=== PATIENT | male | born 1995 | race Caucasian/White ===

== ENCOUNTER 2020-09-24 09:53 | Emergency (ER) | payer SELFPAY ==
[2020-09-24 10:10] VITALS: BP 129/73; PULSE 87; RESP 19; TEMP 36.9; O2SAT 99; BMI 36.9
--- NOTE | 2020-09-24 10:16 | HMH.EDUTC ---
[facility] [place] Clinical Impression: Encounter for laboratory testing for COVID-19 virus Sinusitis Qualifiers: Sinusitis location: unspecified location Chronicity: unspecified Qualified Code(s): J32.9 - Chronic sinusitis, unspecified Disposition: Home, Self-Care Condition on Discharge: Good Instructions: Sinusitis, Sinus Headache, DI for Sinusitis, Amoxicillin and Clavulanic Acid Additional Instructions: *Monitor Temp, Over the counter Motrin or Tylenol as directed/as needed Tylenol every 4 hours and Motrin every 6 hours (as long as your family doctor has told you that you can take it) for fever or pain. and straight to ER if unable to lower temp less than 101.0 after medication given *Warm salt water gargles may help to soothe the throat *Throat Lozenges *Warm fluids like tea with honey may help to soothe the throat *Sleep elevated *Humidifier/Vaporizer Make sure that you are drinking plenty of fluids Follow up IMMEDIATELY for new or worsening symptoms or no Noticeable improvement over the next 48-72 hours. 911 for difficulty breathing or swallowing You were tested for today for COVID19 your test result should be back in the next 24-48 hours, you may call to the [facility] to see if your test results are back in the next 48 hours [phone] [facility] hours are 9am-9pm You was given a handout with instructions for Self Quarantine and Self isolation for while you wait on test results and what to do if they are positive If you are positive the Health Dept will be contacting you also Prescriptions: Amoxicillin/Potassium Clav [Augmentin 875-125 Tablet] 1 tab PO Q12H 10 Days #20 tab Transmission Status: Pending to [facility] methylPREDNISolone [Medrol 4mg tab] 4 mg PO DIRECTED #21 tab Transmission Status: Pending to [facility] Referrals: Nadir Mckeon MD [Primary Care Provider] - As needed Forms: Work/School Release Time of Disposition: 10:24 Medical Decision Making - Codey Inquiry Pt receiving controlled substance: No Codey was queried for this patient: No Vital Signs: 09/24/20 10:10 Temperature 98.4 F Temperature Source Oral Pulse Rate [Right Brachial] 87 Respiratory Rate 19 Blood Pressure [Right Arm] 129/73 Blood Pressure Mean [Right Arm] 91 Blood Pressure Source [Right Arm] Automatic Cuff Blood Pressure Position [Right Arm] Sitting 02 Sat by Pulse Oximetry 99 Oxygen Delivery Method Room Air [facility] - General Stated complaint: stuffy nose,cough,headache Time Seen by Provider: 09/24/20 10:16 Mode of Arrival: Ambulatory Source of Information: Patient Limitations: No Limitations Description of Symptoms (Recalled from Triage Doc. by RN): PATIENT C/O SINUS PRESSURE, RUNNY NOSE, AND CONGESTION SINCE YESTERDAY HEENT Symptoms (Recalled from RN notes): Yes Resp Symptoms (Recalled from RN notes): No Skin Symptoms (Recalled from RN notes): No MS Symptoms (Recalled from RN notes): No Functional Status (Recalled from RN notes): WNL - History of Present Illness Provider Complaint: Patient state that he has been having sinus pain and pressure along with yellowish brown mucous from his nose State that he has had sinus headache and felt like he may have had a fever earlier but took some Motrin for his headache. State that when he lays down feels like he is having drainage in the back of his throat - Related Data Home Medications Medication Instructions Recorded Confirmed Citalopram Hydrobromide 40 mg PO DAILY 09/24/20 09/24/20 [Citalopram 40mg Tablet] Propranolol HCl [Inderal 20mg 20 mg PO TID 09/24/20 09/24/20 Tablet] Previous Rx's Medication Instructions Recorded Amoxicillin/Potassium Clav 1 tab PO Q12H 10 Days #20 tab 09/24/20 [Augmentin 875-125 Tablet] methylPREDNISolone [Medrol 4mg 4 mg PO DIRECTED #21 tab 09/24/20 tab] Allergies Allergy/AdvReac Type Severity Reaction Status Date / Time No Known Allergies Allergy Unverified 09/26/17 14:
[2020-09-24 10:25] VITALS: BP 129/73; PULSE 87; RESP 19; TEMP 36.9; O2SAT 99
== END 2020-09-24 10:28 | disposition home or self-care (01) ==
PROVIDERS: Emergency Provider Nurse Practitioner; PCP Internal Medicine Adolescent Medicine
DX: Z20.828 Contact with and (suspected) exposure to other viral communicable diseases (principal); J32.9 Chronic sinusitis, unspecified
CPT/HCPCS: 99201; U0003

== ENCOUNTER 2021-03-05 15:34 | Emergency (ER) | payer OTHER, SELFPAY ==
[2021-03-05 15:37] VITALS: BP 133/75; PULSE 87; RESP 16; TEMP 36.6; O2SAT 98; BMI 28.8
--- NOTE | 2021-03-05 15:41 | HMH.EDGENADL ---
ED Disposition Clinical Impression: Epigastric pain Disposition: Home, Self-Care Condition on Discharge: Good Prescriptions: Omeprazole [Omeprazole 40mg Capsule] 40 mg PO DAILY #30 cap Transmission Status: [facility] Referrals: Nadir Mckeon MD [Primary Care Provider] - 3 days Time of Disposition: 16:56 - Critical Care Critical Care Time: No Attestation: On , the high probability of a clinically significant, sudden or life threatening deterioration of the following system(s) required my full and direct attention, intervention and personal management. The time I documented below is in addition to time spent performing reported procedures but includes the following listed in this critical care notation. Medical Decision Making - Medical Records Medical records reviewed: Yes: I reviewed the patient's medical records. - Codey Inquiry Pt receiving controlled substance: No Vital Signs: 03/05/21 15:37 Temperature 98 F Temperature Source Oral Pulse Rate [Radial] 87 Respiratory Rate 16 Blood Pressure [Right Arm] 133/75 Blood Pressure Mean [Right Arm] 94 Blood Pressure Position [Right Arm] Sitting 02 Sat by Pulse Oximetry 98 Oxygen Delivery Method Room Air - Lab Data Lab results reviewed: Yes: I reviewed the patient's lab results. Lab Results 03/05/21 15:54: WBC 9.1, RBC 6.24 H, Hgb 16.1, Hct 49.4, MCV 79.2 L, MCH 25.7 L, MCHC 32.5, RDW 13.5, Plt Count 262, MPV 7.1 L, Neut % (Auto) 57.3, Lymph % (Auto) 35.8, [place] % (Auto) 4.6, Eos % (Auto) 1.5, Baso % (Auto) 0.8, Neut # (Auto) 5.2, Lymph # (Auto) 3.3, [place] # (Auto) 0.4, Eos # (Auto) 0.1, Baso # (Auto) 0.1 03/05/21 15:54: Sodium 139, Potassium 4.1, Chloride 105, Carbon Dioxide 27, Anion Gap 11.1, BUN 14, Creatinine 0.80, Estimated Creat Clear 172, Estimated GFR 115, Est GFR ( Amer) 139, Glucose 116 H, Calcium 9.3, Total Bilirubin 0.4, AST 44, ALT 63, Alkaline Phosphatase 60, Total Protein 8.6 H, Albumin 4.8, Globulin 3.8 H, Albumin/Globulin Ratio 1.3, Amylase 59 03/05/21 15:54: Lipase 106 Result diagrams: 03/05/21 15:54 03/05/21 15:54 Orders (Tests/Meds): ORDERS Category Date Time Status Urinalysis and Microscopic Stat Lab 03/05/21 15:41 Ordered - Radiology Data #1 Image(s): Abdomen Image Reviewed: Yes I have reviewed radiologist's interpretation Preliminary Findings: Abnormal Nonobstructive bowel gas pattern with mild constipation Medical Decision Narrative: 26yo M evaluated for epigastric pain with nausea, vomiting, occasional diarrhea. Patient in no acute distress on initial evaluation. His vital signs are unremarkable. CBC and CMP are benign. Will obtain acute abdominal series. Anticipate the patient will be able to discharge home. Discussed cessation of smoking, daily use of PPI, likely need for upper endoscopy as he has a family history of significant gastric ulcers. Patient voiced understanding and agreed with the plan. General Adult HPI - General Stated complaint: bloody stool, vomiting blood Time Seen by Provider: 03/05/21 15:41 Mode of Arrival: Ambulatory - History of Present Illness HPI narrative: 26yo M that denies significant past medical history reports emergency department secondary to abdominal pain with nausea and vomiting and diarrhea. Patient denies any fever. He denies any prior evaluation for this issue, no EGD. He has not been seen by his PCP. He reports taking [id number] Pepcid approximately every other day. - Related Data Home Medications Medication Instructions Recorded Confirmed Citalopram Hydrobromide 40 mg PO DAILY 09/24/20 09/24/20 [Citalopram 40mg Tablet] Propranolol HCl [Inderal 20mg 20 mg PO TID 09/24/20 09/24/20 Tablet] Previous Rx's Medication Instructions Recorded Amoxicillin/Potassium Clav 1 tab PO Q12H 10 Days #20 tab 09/24/20 [Augmentin 875-125 Tablet] methylPREDNISolone [Medrol 4mg 4 mg PO DIRECTED #21 tab
[2021-03-05 16:08] LABS: Basophils # 0.1 K/mm3 (0-0.2); Basophils % 0.8 % (0.1-2.0); Eosinophils # 0.1 K/mm3 (0.0-0.4); Eosinophils % 1.5 % (0.1-12.0); Hematocrit 49.4 % (42.0-52.0); Hemoglobin 16.1 g/dL (14.1-18.0); Lymphocytes # 3.3 K/mm3 (0.7-4.5); Lymphocytes % 35.8 % (10-50); Mean Corpuscular HGB Conc 32.5 g/dL (31.8-35.4); Mean Corpuscular Hemoglobin 25.7 pg (27.0-31.2); Mean Corpuscular Volume 79.2 fl (80-94); Mean Platelet Volume 7.1 fl (7.4-10.4); Monocytes # 0.4 K/mm3 (0.1-1.0); Monocytes % 4.6 % (1.7-9.3); Neutrophils # 5.2 K/mm3 (1.8-7.8); Neutrophils % 57.3 % (37.0-80.0); Platelet Count 262 K/mm3 (142-424); Red Blood Count 6.24 M/mm3 (4.60-6.20); Red Cell Distribution Width 13.5 % (11.5-17.5); White Blood Count 9.1 K/mm3 (4.8-10.8)
[2021-03-05 16:12] LABS: Chloride 105 mmol/L (98-107); Sodium 139 mmol/L (136-145)
[2021-03-05 16:13] LABS: Potassium 4.1 mmoL/L (3.5-5.1)
[2021-03-05 16:15] LABS: Alanine Aminotransferase 63 U/L (12-78); Albumin Level 4.8 g/dl (3.5-5.0); Albumin/Globulin Ratio 1.3 (1.1-1.8); Alkaline Phosphatase 60 U/L (38-126); Amylase 59 U/L (30-110); Anion Gap 11.1 mEq/L (5-15); Aspartate Amino Transferase 44 U/L (17-59); Bilirubin,Total 0.4 mg/dl (0.2-1.3); Blood Urea Nitrogen 14 mg/dl (9-20); Calcium 9.3 mg/dl (8.4-10.2); Carbon Dioxide 27 mmol/L (22.0-30.0); Creatinine Clearance Estimated 172 mL/min (50-200); Estimated Glomerular Filt Rate 115 ml/min (>60); GFR (African American) 139 ML/MIN (>60); Globulin 3.8 g/dL (1.3-3.2); Glucose 116 mg/dl (74-100); Total Protein,Serum 8.6 g/dl (6.3-8.2)
[2021-03-05 16:16] LABS: Lipase 106 U/L (23-300)
--- NOTE | 2021-03-05 16:54 | XR_ITS ---
PROCEDURE INFORMATION: Exam: XR Abdomen Exam date and time: 03/05/2021 4:54 PM Age: 26 years old Clinical indication: Abdominal pain; Epigastric; Prior surgery; Surgery type: Appendectomy; Additional info: Epigastric pain TECHNIQUE: Imaging protocol: XR of the abdomen. Views: 2 Views. Upright and supine views. COMPARISON: ABDPELW/O CT ABD PELVIS W/O CONTRAST 06/29/2017 11:07 PM FINDINGS: Lungs: Lung bases are clear. Gastrointestinal tract: No bowel obstruction or significant bowel wall thickening. There is mildly excessive colonic stool content. Intraperitoneal space: There is no free intraperitoneal air. Bones/joints: No acute skeletal abnormality or aggressive osseous lesion. Other findings: Calcification projects over the left pelvis. IMPRESSION: Nonobstructive bowel gas pattern with mild constipation.
[2021-03-05 17:37] VITALS: BP 133/75; PULSE 87; RESP 16; TEMP 37.1; O2SAT 100
== END 2021-03-05 17:41 | disposition home or self-care (01) ==
PROVIDERS: Emergency Provider Family Medicine; PCP Internal Medicine Adolescent Medicine
DX: R10.13 Epigastric pain (principal); K92.1 Melena; R19.7 Diarrhea, unspecified; F17.210 Nicotine dependence, cigarettes, uncomplicated
CPT/HCPCS: 74019; 80053; 82150; 83690; 85025; 99282

== ENCOUNTER → 2021-07-05 10:36 | Outpatient (CLI) | payer OTHER, SELFPAY | PROVIDERS: PCP Internal Medicine Adolescent Medicine; Visit Provider Nurse Practitioner | DX: Z20.822 Contact with and (suspected) exposure to COVID-19 (principal) | CPT/HCPCS: C9803; U0003; U0005 ==

== ENCOUNTER → 2021-11-10 14:37 | Outpatient (CLI) | payer OTHER, SELFPAY | PROVIDERS: PCP Internal Medicine Adolescent Medicine; Visit Provider Nurse Practitioner | DX: U07.1 COVID-19 (principal) | CPT/HCPCS: C9803; U0003; U0005 ==

== ENCOUNTER 2025-06-05 04:57 | Emergency (ER) | payer OTHER, SELFPAY ==
--- OUTSIDE RECORDS SUMMARY | 2024-05-07 11:30 | XMS_ITS ---
Author Organization [facility] Address [address] [place] [address] Care Team Providers Care It Systems Engineer Name Role Phone Nadir Mckeon Primary Care Provider REASON FOR VISIT annual, Encounters Encounter Location Date Provider Diagnosis [place] [address] [address] 05/07/2024 Nadir Mckeon Plan Of Treatment No Information Progress Notes * Greg FERNANDEZDOB:1995 (30 yo M)Acc No.[id number]:05/07/2024 Progress Notes Patient: Greg VALDES Provider: Yulia Mckeon MD :1995 A ge:29 Y S ex:Male Date:05/07/2024 Address:[address] [place] [address] [phone] Subjective: * Chief Complaints: * 1 . Annual,. * Medical History: Objective: * Vitals: Assessment: Plan: * Treatment: * * Electronic signature of Reinaldo Mckeon MD FAAP on 06/05/2025 at 05:23 AM EDT Sign off status: Pending * Provider: Yulia Mckeon MD Date: 05/07/2024 Generated for Printi ng/Faxing/eTransmitting on: 06/05/2025 05:23 AM EDT
--- OUTSIDE RECORDS SUMMARY | 2024-08-20 04:45 | XMS_ITS ---
Author Organization [facility] Address [address] [place] [address] Care Team Providers Care Line Person Name Role Phone Nadir Mckeon Primary Care Provider REASON FOR VISIT med ck,labs, Wellness exam and labs Encounters Encounter Location Date Provider Diagnosis [address] [address] 08/20/2024 Nadir Mckeon Plan Of Treatment No Information Progress Notes * Greg FERNANDEZDOB:1995 (30 yo M)Acc No.[id number]:08/20/2024 Progress Notes Patient: Farhad VALDESt Provider: Yulia Mckeon MD :1995 A ge:29 Y S ex:Male Date:08/20/2024 Address:[address] [place] [address] [phone] Subjective: * Chief Complaints: * 1 . Med ck,labs. 2. Wellness exam and labs. * Medical History: Objective: * Vitals: Assessment: Plan: * Treatment: * * Electronic signature of Reinaldo Mckeon MD FAAP on 06/05/2025 at 05:24 AM EDT Sign off status: Pending * Provider: Yulia Mckeon MD Date: 10/20/2023 Generated for Printi ng/Fayonnyg/eTransmitting on: 0 06/05/2025 05:24 AM EDT
--- OUTSIDE RECORDS SUMMARY | 2025-01-11 17:30 | XMS_ITS ---
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 Role Phone Nadir Mckeon Primary Care Provider Migration, Provider Unavailable Unavailable REASON FOR VISIT [facility] Conversion Encounter Medications Medication SIG (Take, Route, Frequency, Duration) Notes Start Date End Date Status Citalopram Hydrobromide 40 MG 1 tab(s) orally once a day; Duration: 90 days Active Propranolol HCl 20 MG 1 tab(s) orally th ree times daily; Duration: 90 days Active Encounters Encounter Location Date Provider Diagnosis [facility] [address] [facility] [address] [facility] [address] [place] [address] 01/11/2025 Provider Migration Generalized anxiety disorder F41.1 Assessments Encounter Date Diagnosis (ICD Code) Assessment Notes Treatment Notes Treatment Clinical Notes Section Notes 01/11/2025 Generalized anxiety disorder (ICD-10 - F41.1) Plan Of Treatment Medication Medication Name Sig Start Date Stop Date Notes Citalopram Hydrobromide 40 MG 1 tab(s) o rally once a day; Duration: 90 days Propranolol HCl 20 MG 1 tab(s) orally th ree times daily; Duration: 90 days Progress Notes * Greg FERNANDEZDOB:1995 (30 yo M)Acc No.[id number]:01/11/2025 Patient: Greg VALDES Provider: Chelsey benitez Migration :1995 A ge:29 Y S ex:Male Date:01/11/2025 Address:[address] [place] [address] [id number] Pcp:Nadir Mckeon Subjective: * Chief Complaints: * 1 . [facility] Conversion Encounter. * Medical History: Objective: * Vitals: Assessment: * Assessment: 1. G eneralized anxiety disorder - F41.1 Plan: * Treatment: * * Electronic signature of Keenan chan Migration on 06/05/2025 at 05:23 AM EDT Sign off status: Pending * Provider: Chelsey benitez Migration Date: 0 01/11/2025 Generated for Alejandra romano/Smitha/Adam on: 06/05/2025 05:23 AM EDT
[2025-06-05] VITALS (8 sets, daily range): BP systolic 122–176; BP diastolic 54–90; PULSE 74–94; RESP 16–18; TEMP 36.6–36.8; O2SAT 95–98; BMI 41.0
--- NOTE | 2025-06-05 05:04 | ED_ITS ---
Discharge Plan Disposition Patient Disposition: Home, Self-Care Condition: Good Prescriptions Prescriptions: No Action citalopram 40 MG tablet 40 mg PO DAILY propranolol 20 MG tablet 20 mg PO TID methylprednisolone 4 MG tablet 4 mg PO DIRECTED Qty: 21 0RF Rx Instructions: Take as directed on package instructions amoxicillin-pot clavulanate 1 EACH tablet 1 tab PO Q12H 10 Days Qty: 20 0RF omeprazole 40 MG capsule,delayed release(DR/EC) 40 mg PO DAILY Qty: 30 0RF Referrals Follow up/Referrals: Rahul London II, MD [Staff Physician, Gastroenterology] - See instructions Nadir Mckeon MD [Primary Care Provider, Internal Medicine] - See instructions Activity Restrictions/Add. Instructions Additional Instructions/Restrictions: Please call Dr. London clinic today and tell them you were seen in the emergency department for bloody stools and need a follow up appointment in the clinic. If you have any new or worsening symptoms, including worsening GI bleeding, or symptoms of anemia including fatigue, shortness of breath, lightheadedness, or passing out please return. Clinical Impressions Clinical Impression: Bloody diarrhea Instructions Patient Instructions: DI for Acute Abdominal Pain Print Language Print Language: Colombian Discharge ED Provider: Mervin Trejo General Adult HPI <Samy Restrepo MD - Last Filed: 06/05/25 06:54> General Chief complaint: Abdominal Pain Stated complaint: lower back, abd pain, blood in stool, vomting Time Seen by Provider: 06/05/25 05:04 History of Present Illness HPI narrative: 30-year-old male without significant past medical history presents for lower abdominal and low back pain associated with an episode of bloody diarrhea. Reports symptoms started this evening/tonight. He had an episode of diarrhea that had bright blood mixed in. He has never had anything like this before. He denies any history of inflammatory bowel disease or colitis or diverticulitis. He reports no urinary symptoms. Related Data Home Medications ?Medication ?Instructions ?Recorded ?Confirmed citalopram 40 mg tablet 40 mg PO DAILY . 09/24/20 propranolol 20 mg tablet 20 mg PO TID . 09/24/2009/08 Previous Rx's ?Medication ?Instructions ?Recorded amoxicillin 875 mg-potassium 1 tab PO Q12H 10 days #20 tabs 09/24/20 clavulanate 125 mg tablet methylprednisolone 4 mg tablet 4 mg PO DIRECTED #21 tabs 09/24/20 omeprazole 40 mg capsule,delayed 40 mg PO DAILY #30 ca ps 03/05/21 release Allergies Allergy/AdvReac Type Severity Reaction Status Date / Time No Known Allergies Allergy Verified 09/24/20 10:16 [facility] <Samy Restrepo MD - Last Filed: 06/05/25 06:54> [facility] Disclaimer: The information contained in this section may have been updated after the patient was seen, as this information can be updated by other users. Social History Smoking Status: Current every day smoker tobacco type: cigarettes packs per day: 1 alcohol intake: never current occupational status: other Travel in the last 8 weeks?: None Have you lived/traveled outside [place] in past 30 days?: No Contact w/someone who lives/traveled outside US past 30 days?: No Exposure to someone with infectious disease in past 14 days?: No Do you have a fever (greater than 100.4 F or 38 C)?: No Have you tested positive for COVID-19?: No Exposed to someone with COVID-19 in past 14 days?: No Do you have a sore throat?: No Do you have a cough?: No Do you have any weakness?: No Do you have any diarrhea?: No Are you experiencing any unusual bleeding?: Yes Do you have any muscle aches/pain?: No Do you have any abdominal pain?: Yes Are you experiencing loss of taste or smell?: No Other Medical History Have you received the Flu Vaccine for this season: Yes Have you received the Pneumonia Vaccine: Yes <Samy Restrepo MD - Last Filed: 06/05/25 06:54> ROS Obtained: Yes All systems reviewed & no additional complaints except as documented Physical Exam <Samy Restrepo MD - Last Filed: 06/05/25 06:54> General General appearance: alert and in no apparent distress Head Head exam: atraumatic and normocephalic Eye Eye exam: Present normal appearance, PERRL and EOMI ENT ENT exam: Present normal oropharynx and normal external ear exam Neck Neck exam: Present normal inspection and full ROM Chest Chest inspection: Present normal inspection and symmetric chest wall rise; Absent tenderness Respiratory Respiratory exam: Present normal lung sounds bilaterally; Absent respiratory distress Cardiovascular Cardiovascular exam: Present regular rate and normal rhythm Abdominal Exam Abdominal exam: Present soft and tenderness (Mild, lower abdominal); Absent distention or guarding Extremities Exam Extremities exam: Present normal inspection; Absent edema or joint swelling Back Exam Back exam: Present normal inspection; Absent tenderness Neurological Exam Neurological exam: Present alert and oriented X3; Absent motor sensory deficit Psychiatric Psychiatric exam: Present normal affect and normal mood Skin Skin exam: Present warm, dry and normal color Lymphatic Lymphatic Findings: no adenopathy Medical Decision Making <Samy Restrepo MD - Last Filed: 06/05/25 06:54> Medical Records Medical records reviewed: Yes I reviewed the patient's medical records. Screening: Per USPSTF and CDC recommendations, given the prevalence of disease in our region, it is our hospital?s policy to screen for HIV and viral Hepatitis for all patients aged 18 and over and those with ongoing risk factors. Codey Inquiry Pt receiving controlled substance: No Codey was queried for this patient: No Vital Signs: 06/05/25 05:07 06/05/25 06:24 06/05/25 06:30 Temperature 97.9 F Temperature Source Oral Pulse Rate 94 H 79 Pulse Rate [Left] 89 Respiratory Rate 16 Blood Pressure 122/76 134/62 Blood Pressure [Right Arm] 176/71 H Blood Pressure Mean [Right Arm] 106 Blood Pressure Source [Right Arm] Automatic Cuff 02 Sat by Pulse Oximetry 98 95 95 Oxygen Delivery Method Room Air Room Air Room Air 06/05/25 07:30 06/05/25 08:01 06/05/25 08:31 Temperature Temperature Source Pulse Rate 79 80 82 Pulse Rate [Left] Respiratory Rate Blood Pressure 146/90 H 128/83 129/54 L Blood Pressure [Right Arm] Blood Pressure Mean [Right Arm] Blood Pressure Source [Right Arm] 02 Sat by Pulse Oximetry 96 96 96 Oxygen Delivery Method 06/05/25 09:01 Temperature Temperature Source Pulse Rate 74 Pulse Rate [Left] Respiratory Rate Blood Pressure 132/62 Blood Pressure [Right Arm] Blood Pressure Mean [Right Arm] Blood Pressure Source [Right Arm] 02 Sat by Pulse Oximetry 96 Oxygen Delivery Method Lab Data Lab results reviewed: Yes I reviewed the patient's lab results. Lab Results 06/05/25 05:35: Urine Color Yellow, Urine Appearance Clear, Urine pH 6.0, Ur Specific [place] 1.025, Urine Protein Negative, Urine Glucose (UA) Negative, Urine Ketones 1+, Urine Blood Negative, Urine Nitrate Negative, Urine Bilirubin 1+ A, Urine Urobilinogen 0.2, Ur Leukocyte Esterase Negative, Ur Squamous Epith Cells 3-5, Urine Bacteria Trace 06/05/25 06:05: WBC 9.4, RBC 5.61, Hgb 15.0, Hct 43.8, MCV 78.1 L, MCH 26.7 L, MCHC 34.2, RDW 13.8, Plt Count 251, MPV 10.0, Neut % (Auto) 53.8, Lymph % (Auto) 35.3, [place] % (Auto) 7.4, Eos % (Auto) 2.6, Baso % (Auto) 0.7, Neut # (Auto) 5.1, Lymph # (Auto) 3.3, [place] # (Auto) 0.7, Eos # (Auto) 0.2, Baso # (Auto) 0.1, ESR 4, Sodium 138, Potassium 3.7, Chloride 105, Carbon Dioxide 26, Anion Gap 10.7, BUN 19, Creatinine 0.80, Estimated Creat Clear 230, Estimated GFR 112, Est GFR ( Amer) 136, Glucose 109 H, Calcium 9.4, Total Bilirubin 0.5, AST 36, ALT 40, Alkaline Phosphatase 51, C-Reactive Protein 7.1 H, Total Protein 8.0, Albumin 4.7, Globulin 3.3 H, Albumin/Globulin Ratio 1.4 06/05/25 08:40: Hgb 14.6, Hct 43.0 06/05/25 08:40 06/05/25 06:05 Orders (Tests/Meds): ED MEDICATIONS Discontinued Medications Generic Name Dose Route Start Last Admin Trade Name Randyq PRN Reason Stop Dose Admin Acetaminophen 1,000 mg 06/05/25 05:08 06/05/25 05:26 Acetaminophen 500mg Tab PO 06/05/25 05:09 1,000 mg ONCE ONE Administration Iopamidol 80 ml 06/05/25 07:05 06/05/25 07:07 Iopamidol-370 (76%);100ml Bottle IV 06/05/25 07:06 80 ml ONCE ONE Administration Ketorolac Tromethamine 30 mg 06/05/25 05:08 06/05/25 05:26 Ketorolac 30mg/Ml Vial IV 06/05/25 05:09 30 mg ONCE ONE Administration ORDERS Category Date Time Status CT angio abd/pel - GI Bleed Stat Cat Scan 06/05/25 05:08 Completed POCUS Point of Care (ER Only) Stat Exams 06/05/25 05:50 Completed CBC w/Auto Diff [Complete Blood Count Auto Diff] Stat Lab 06/05/25 06:05 Completed CMP [Comprehensive Metabolic Panel] Stat Lab 06/05/25 06:05 Completed CRP [C-Reactive Protein] Stat Lab 06/05/25 06:05 Completed Diarrhea 23 Panel, PCR Stat Lab 06/05/25 05:55 Ordered ESR [Erythrocyte Sedimentation Rate] Stat Lab 06/05/25 06:05 Completed Hemoglobin and Hematocrit Stat Lab 06/05/25 08:40 Completed UA [Urinalysis and Microscopic] Stat Lab 06/05/25 05:35 Completed Ova + Parasite Exam Stat Micro 06/05/25 05:08 Ordered Medical Decision Narrative: 30-year-old male without significant past medical history presents for lower abdominal/back pain with associated bloody diarrhea. History was obtained via interactive discussion with patient. On arrival, patient is [afebrile, hemodynamically stable, satting appropriately, alert, oriented x4, GCS 15], moving all extremities spontaneously. Full physical exam performed and significant for mild lower abdominal tenderness Differential includes but is not limited to colitis, IBD, enteritis, lower GI bleed, diverticulitis, anal fissure, hemorrhoid. Patient was given Tylenol Toradol for symptomatic management and correction of underlying abnormalities. Workup initiated including CBC CMP urine panel stool panel CT abdomen pelvis. On re-evaluation, patient [remains afebrile, HD stable.] Laboratory workup independently interpreted by me and significant for no significant leukocytosis, LFTs normal, normal inflammatory markers. Urinalysis unremarkable.. At this time care handed off to oncoming physician. <Mervin Trejo, DO - Last Filed: 06/05/25 09:30> Vital Signs: 06/05/25 05:07 06/05/25 06:24 06/05/25 06:30 Temperature 97.9 F Temperature Source Oral Pulse Rate 94 H 79 Pulse Rate [Left] 89 Respiratory Rate 16 Blood Pressure 122/76 134/62 Blood Pressure [Right Arm] 176/71 H Blood Pressure Mean [Right Arm] 106 Blood Pressure Source [Right Arm] Automatic Cuff 02 Sat by Pulse Oximetry 98 95 95 Oxygen Delivery Method Room Air Room Air Room Air 06/05/25 07:30 06/05/25 08:01 06/05/25 08:31 Temperature Temperature Source Pulse Rate 79 80 82 Pulse Rate [Left] Respiratory Rate Blood Pressure 146/90 H 128/83 129/54 L Blood Pressure [Right Arm] Blood Pressure Mean [Right Arm] Blood Pressure Source [Right Arm] 02 Sat by Pulse Oximetry 96 96 96 Oxygen Delivery Method 06/05/25 09:01 Temperature Temperature Source Pulse Rate 74 Pulse Rate [Left] Respiratory Rate Blood Pressure 132/62 Blood Pressure [Right Arm] Blood Pressure Mean [Right Arm] Blood Pressure Source [Right Arm] 02 Sat by Pulse Oximetry 96 Oxygen Delivery Method Lab Data Lab Results 06/05/25 05:35: Urine Color Yellow, Urine Appearance Clear, Urine pH 6.0, Ur Specific [place] 1.025, Urine Protein Negative, Urine Glucose (UA) Negative, Urine Ketones 1+, Urine Blood Negative, Urine Nitrate Negative, Urine Bilirubin 1+ A, Urine Urobilinogen 0.2, Ur Leukocyte Esterase Negative, Ur Squamous Epith Cells 3-5, Urine Bacteria Trace 06/05/25 06:05: WBC 9.4, RBC 5.61, Hgb 15.0, Hct 43.8, MCV 78.1 L, MCH 26.7 L, MCHC 34.2, RDW 13.8, Plt Count 251, MPV 10.0, Neut % (Auto) 53.8, Lymph % (Auto) 35.3, [place] % (Auto) 7.4, Eos % (Auto) 2.6, Baso % (Auto) 0.7, Neut # (Auto) 5.1, Lymph # (Auto) 3.3, [place] # (Auto) 0.7, Eos # (Auto) 0.2, Baso # (Auto) 0.1, ESR 4, Sodium 138, Potassium 3.7, Chloride 105, Carbon Dioxide 26, Anion Gap 10.7, BUN 19, Creatinine 0.80, Estimated Creat Clear 230, Estimated GFR 112, Est GFR ( Amer) 136, Glucose 109 H, Calcium 9.4, Total Bilirubin 0.5, AST 36, ALT 40, Alkaline Phosphatase 51, C-Reactive Protein 7.1 H, Total Protein 8.0, Albumin 4.7, Globulin 3.3 H, Albumin/Globulin Ratio 1.4 06/05/25 08:40: Hgb 14.6, Hct 43.0 Orders (Tests/Meds): ED MEDICATIONS Discontinued Medications Generic Name Dose Route Start Last Admin Trade Name Jeri PRN Reason Stop Dose Admin Acetaminophen 1,000 mg 06/05/25 05:08 06/05/25 05:26 Acetaminophen 500mg Tab PO 06/05/25 05:09 1,000 mg ONCE ONE Administration Iopamidol 80 ml 06/05/25 07:05 06/05/25 07:07 Iopamidol-370 (76%);100ml Bottle IV 06/05/25 07:06 80 ml ONCE ONE Administration Ketorolac Tromethamine 30 mg 06/05/25 05:08 06/05/25 05:26 Ketorolac 30mg/Ml Vial IV 06/05/25 05:09 30 mg ONCE ONE Administration ORDERS Category Date Time Status CT angio abd/pel - GI Bleed Stat Cat Scan 06/05/25 05:08 Completed POCUS Point of Care (ER Only) Stat Exams 06/05/25 05:50 Completed CBC w/Auto Diff [Complete Blood Count Auto Diff] Stat Lab 06/05/25 06:05 Completed CMP [Comprehensive Metabolic Panel] Stat Lab 06/05/25 06:05 Completed CRP [C-Reactive Protein] Stat Lab 06/05/25 06:05 Completed Diarrhea 23 Panel, PCR Stat Lab 06/05/25 05:55 Ordered ESR [Erythrocyte Sedimentation Rate] Stat Lab 06/05/25 06:05 Completed Hemoglobin and Hematocrit Stat Lab 06/05/25 08:40 Completed UA [Urinalysis and Microscopic] Stat Lab 06/05/25 05:35 Completed Ova + Parasite Exam Stat Micro 06/05/25 05:08 Ordered Medical Decision Narrative: 30-year-old male without significant past medical history presents for lower abdominal/back pain with associated bloody diarrhea. History was obtained via interactive discussion with patient. On arrival, patient is [afebrile, hemodynamically stable, satting appropriately, alert, oriented x4, GCS 15], moving all extremities spontaneously. Full physical exam performed and significant for mild lower abdominal tenderness Differential includes but is not limited to colitis, IBD, enteritis, lower GI bleed, diverticulitis, anal fissure, hemorrhoid. Patient was given Tylenol Toradol for symptomatic management and correction of underlying abnormalities. Workup initiated including CBC CMP urine panel stool panel CT abdomen pelvis. On re-evaluation, patient [remains afebrile, HD stable.] Laboratory workup independently interpreted by me and significant for no significant leukocytosis, LFTs normal, normal inflammatory markers. Urinalysis unremarkable.. At this time care handed off to oncoming physician. Transfer of care Dr. Neil Michele assumed care of this patient at 0700 this morning upon arrival to work. I did independently evaluate the patient and obtained history. He tells me that he has a dense family history of colonic polyps and colon cancer. His father was diagnosed with colonic polyps in his 20s and the patient was scheduled undergo a colonoscopy with Dr. London several years ago but he ended up getting sick and missed this appointment and has been lost to follow-up since that time. He tells me that he has had hematochezia going on for a period of several months, but he has felt that this has been quite mild. This morning he woke up and began experiencing lower abdominal cramping and pain followed by what he describes to be large-volume hematochezia. In the emergency department his labs are largely unremarkable. He does not have any evidence of anemia. At the time of shift change his CT scan of his abdomen pelvis is pending. CT scan was personally turbid by me and demonstrates no evidence of large volume pneumoperitoneum. Official radiology read is in agreement states there is no acute abnormality. On repeat reassessment the patient states that he is still unable to provide a stool sample. We have discussed him returning to the emergency department if he is able to provide a stool sample. After being in the emergency department for 3.5 hours we did repeat a hemoglobin and hematocrit. He has not had a significant drop in his blood counts so I do not feel he necessitates admission at this time. Instead, what we will do is we will have him call Dr. London clinic for an appointment and return to the emergency department if he experiences any symptoms of anemia or worsening GI bleeding. At this time all questions were answered and all parties were agreeable with the decision to discharge home. Patient acknowledges return precautions. Procedures <Samy Restrepo MD - Last Filed: 06/05/25 06:54> Risk/Benefits of Procedure(s) Were Explained: Yes Limited Ultrasound Indication:: Procedure: Ultrasound-guided IV Indication: Abdominal pain Description: Linear ultrasound probe was utilized to identify suitable vein. Images were saved to the patient's permanent record. A left 20-gauge long IV in the AC was placed by me at bedside using direct ultrasound guidance. Procedure successful. Critical Care <Samy Restrepo MD - Last Filed: 06/05/25 06:54> Critical Care Time Critical Care Time: No
--- NOTE | 2025-06-05 05:08 | CT_ITS ---
FINAL REPORT TECHNIQUE: Thin section axial images were obtained through the abdomen and pelvis after contrast injection per CT angiogram protocol. Multiplanar reconstruction images were obtained from the axial data. This exam was performed with techniques to keep radiation dose as low as reasonably achievable. This includes automated exposure control, adjustment of the MA and KVP, and iterative reconstruction technique. CLINICAL HISTORY: lower abd/back pain, bloody stool COMPARISON: None FINDINGS: CTA: No abdominal aortic aneurysm or aortic dissection. The celiac axis, superior mesenteric artery, and inferior mesenteric artery are patent without stenosis. The renal arteries are patent. The common iliac arteries and visualized portions of the internal and external iliac arteries are patent. No significant stenosis. NONVASCULAR: The gallbladder is present. The solid abdominal organs are without acute abnormality. There is no evidence of small bowel obstruction. No wall thickening of large or small bowel. The GI tract is without acute abnormality. No lymphadenopathy or free fluid. No acute osseous abnormality. IMPRESSION: Unremarkable CT angiogram of the abdomen and pelvis. Reviewed, Interpreted and Dictated by Flavia Avalos MD Transcribed by Lou Torres Authenticated and [facility]
--- OUTSIDE RECORDS SUMMARY | 2025-06-05 05:23 | XMS_ITS | Patient Health Record ---
Author Organization [facility] Address [address] [place] [address] Care Team Providers Care [employer] Room Service Supervisor Name Role Phone Nadir Mckeon Primary Care Provider Migration, Provider Unavailable Unavailable Allergies No Known Allergies Medications Medication SIG (Take, Route, Frequency, Duration) Notes Start Date End Date Status Citalopram Hydrobromide 40 mg TAKE ONE TABLET BY MOUTH ONCE A DAY; Duration: 30 Active Propranolol HCl 20 MG 1 tab(s) orally th ree times daily; Duration: 90 days Active Immunizations Vaccine Route Administration Date Status Comme nts FluMist IN intranasal 08/07/2009 Administered Problems Problem Type SNOMED Code ICD Code Onset Dates Problem Status W/U Status Risk Notes Problem Morbid obesity (disorder) (826009224) Morbid (severe) obesity due to excess calories (E66.01) Active confirmed Problem Generalized anxiety disorder (49624490) Generalized anxiety disorder (F41.1) Active confirmed Problem Tobacco use (697458953) Tobacco use disorder (Z72.0) Active confirmed Problem Seasonal allergic rhinitis (600530653) Seasonal rhinitis (J30.2) Active confirmed Problem Tachycardia (0657690) Tachycardia (R00.0) Active confirmed Problem Obese class II (964970240274777) BMI 38.0-38.9,adult (Z68.38) Active confirmed Problem Uncomplicated mild persistent asthma (366965661) Mild persistent asthma without complication (J45.30) Active confirmed Problem Panic disorder (906556514) Panic disorder (F41.0) Active confirmed Problem Gastroesophageal reflux disease (disorder) (437246957) Chronic GERD (K21.9) Active confirmed Encounters Encounter Location Date Provider Diagnosis [facility] [address] [facility] [address] [place] [address] 01/11/2025 Provider Migration Generalized anxiety disorder F41.1 Assessments Encounter Date Diagnosis (ICD Code) Assessment Notes Treatment Notes Treatment Clinical Notes Section Notes 01/11/2025 Generalized anxiety disorder (ICD-10 - F41.1) Plan Of Treatment Pending Test Test Name Order Date Sleep Study 11/29/2017 Physical Therapy 10/28/2013 Aerobic Bacterial Culture 03/22/2014 Medical (General) History Medical History History ICD Code anxiety MRSA Surgical History Surgery Date(Month/Year) Appendectomy 06/2017 Hospitalization History Reason Date(Month/Year) [facility] 06/2017 Headaches/double vison Summer 2008
[2025-06-05] MEDS: KETOROLAC 30MG/ML VIAL 30 MG IV (05:26)
[2025-06-05] MEDS: ACETAMINOPHEN 500MG TAB 1000 MG PO (05:26)
[2025-06-05 05:45] LABS: Microscopic, Urine URINE MICROSCOPIC (MICROSCOPIC)
[2025-06-05 05:47] LABS: Color,Urine YELLOW (Yellow); Glucose,Urine (UA) Negative (Negative); Ketones,Urine 1+ (Negative); Leukocyte Esterase,Urine Negative (Negative); PH,Urine 6.0 (5.0-8.5); Protein,Urine Negative (Negative); Specific Gravity, Urine 1.025 (1.005-1.030); Urobilinogen,Urine 0.2 EU/dl (0.2)
[2025-06-05 05:53] LABS: Bilirubin,Urine 1+ (Negative)
[2025-06-05 05:54] LABS: Bacteria,Urine Trace /lpf
[2025-06-05 06:20] LABS: Hematocrit 43.8 % (42.0-52.0); Hemoglobin 15.0 g/dL (14.1-18.0); Immature Granulocytes % 0.2 %; Mean Corpuscular HGB Conc 34.2 g/dL (31.8-35.4); Mean Corpuscular Hemoglobin 26.7 pg (27.0-31.2); Mean Corpuscular Volume 78.1 fl (80-94); Nucleated Red Blood Cells % 0 %; Platelet Count 251 K/mm3 (142-424); Red Blood Count 5.61 M/mm3 (4.60-6.20); Red Cell Distribution Width-SD 38.9 fL; White Blood Count 9.4 K/mm3 (4.8-10.8)
[2025-06-05 06:25] LABS: Chloride 105 mmol/L (98-107)
[2025-06-05 06:26] LABS: Albumin Level 4.7 g/dl (3.5-5.0); Potassium 3.7 mmoL/L (3.5-5.1); Sodium 138 mmol/L (136-145)
[2025-06-05 06:28] LABS: Alanine Aminotransferase 40 U/L (12-78); Anion Gap 10.7 mEq/L (5-15); Aspartate Amino Transferase 36 U/L (17-59); Blood Urea Nitrogen 19 mg/dl (9-20); Carbon Dioxide 26 mmol/L (22.0-30.0); Creatinine Clearance Estimated 230 mL/min (50-200); Creatinine,Serum 0.80 mg/dl (0.66-1.25); Estimated Glomerular Filt Rate 112 ml/min (>60); GFR (African American) 136 ML/MIN (>60)
[2025-06-05 06:29] LABS: Albumin/Globulin Ratio 1.4 (1.1-1.8); Alkaline Phosphatase 51 U/L (38-126); Bilirubin,Total 0.5 mg/dl (0.2-1.3); Calcium 9.4 mg/dl (8.4-10.2); Globulin 3.3 g/dL (1.3-3.2); Glucose 109 mg/dl (74-100); Total Protein,Serum 8.0 g/dl (6.3-8.2)
[2025-06-05 06:34] LABS: C-Reactive Protein 7.1 mg/L (0-4)
[2025-06-05] MEDS: IOPAMIDOL-370 (76%);100ML BOTTLE 80 ML IV (07:07)
[2025-06-05 08:51] LABS: Hematocrit 43.0 % (42.0-52.0); Hemoglobin 14.6 g/dL (14.1-18.0)
== END 2025-06-05 09:35 | disposition home or self-care (01) ==
PROVIDERS: Emergency Medicine; Emergency Provider Student in an Organized Health Care Education/Training Program; PCP Internal Medicine Adolescent Medicine
DX: R10.13 Epigastric pain (principal); R19.7 Diarrhea, unspecified
CPT/HCPCS: 74174; 80053; 81001; 85014; 85018; 85025; 85651; 86140; 96374; 99284; J1885; Q9967